=== PATIENT | male | born 1960 | race Caucasian/White ===

== ENCOUNTER 2018-02-25 00:06 | Emergency (ER) | payer OTHER ==
[~2018-02-25] VITALS: Ht 175.3 cm; Wt 92.1 kg
[~2018-02-25 00:06] MED LIST: PERCOCET 5-3251 EACH PO
[2018-02-25] MEDS ORDERED: FLOMAX0.4 MG PO (00:17)
[2018-02-25] MEDS ORDERED: GLUCOPHAGE1000 MG PO (00:17)
[2018-02-25] MEDS ORDERED: AMBIEN 5 MG TABL5 M1 PO (00:18)
[2018-02-25] MEDS ORDERED: IBUPROFEN 800800 MG PO (00:56)
[2018-02-25 01:07] VITALS: BP 132/74
== END 2018-02-25 01:08 | disposition home or self-care (01) ==
LOC: M.ERS 00:06
DX: S61.011A Laceration without foreign body of right thumb without damage to nail, initial encounter (principal); Z88.0 Allergy status to penicillin; W26.9XXA Contact with unspecified sharp object(s), initial encounter; Y93.89 Activity, other specified; Y92.89 Other specified places as the place of occurrence of the external cause; Y99.8 Other external cause status

== ENCOUNTER 2018-11-25 17:34 | Emergency (ER) | payer OTHER ==
[~2018-11-25] VITALS: Ht 175.3 cm; Wt 93.0 kg
[~2018-11-25 17:34] MED LIST changes: +AMBIEN 5 MG TABL5 M1 PO; +FLOMAX0.4 MG PO; +GLUCOPHAGE1000 MG PO; +IBUPROFEN 800800 MG PO
[2018-11-25 18:49] VITALS: BP 111/61
== END 2018-11-25 18:49 | disposition home or self-care (01) ==
LOC: M.ERS 17:34
DX: S61.220A Laceration with foreign body of right index finger without damage to nail, initial encounter (principal); Z88.0 Allergy status to penicillin; Z88.1 Allergy status to other antibiotic agents; W26.8XXA Contact with other sharp object(s), not elsewhere classified, initial encounter; Y92.89 Other specified places as the place of occurrence of the external cause; Y99.0 Civilian activity done for income or pay; Y99.8 Other external cause status

== ENCOUNTER 2019-09-02 17:40 | Inpatient (IN) | payer OTHER, SELFPAY ==
[~2019-09-02] VITALS: Ht 175.3 cm; Wt 54.3 kg
[2019-09-02 17:47] VITALS: BP 140/83
[2019-09-02] MEDS ORDERED: ZPAK PO (17:50)
[2019-09-02] MEDS ORDERED: DORYX MPC120 MG PO (17:51)
[2019-09-02 18:25] LABS: INFLUENZA A ANTIGEN Negative (Negative); INFLUENZA B ANTIGEN Negative (Negative)
[2019-09-02 18:36] LABS: ABSOLUTE LYMPHOCYTES 0.4 thou/uL (0.8-5.3); ABSOLUTE MONOCYTES 0.5 thou/uL (0.0-1.2); ABSOLUTE NEUTROPHILS 3.2 thou/uL (1.6-8.1); BASOPHILS 0.3 %; HEMATOCRIT 41.3 % (42.0-52.0); HEMOGLOBIN 14.3 gm/dL (14.0-18.0); MCH 28.1 pg (26.0-34.0); MCHC 34.6 g/dL (28.0-37.0); MCV 81.2 fL (80.0-100.0); MONOCYTES 11.3 %; MPV 7.9 fl. (7.2-11.1); NUCLEATED RBCS 0 /100WBC; PLATELET COUNT* 143 thou/uL (150-400); POLYS 78.4 %; RBC 5.09 mil/uL (4.50-6.00); RDW-CV 13.6 % (10.5-14.5); WBC 4.1 thou/uL (4.0-11.0)
[2019-09-02 18:48] LABS: APTT 27.8 Seconds (25.0-31.3); CALCIUM 8.5 mg/dL (8.5-10.1); CREATININE 1.1 mg/dL (0.6-1.3); POTASSIUM 4.1 mmol/L (3.5-5.1); PROTIME 10.5 Seconds (9.20-11.50)
[2019-09-02 18:57] LABS: ALBUMIN 3.7 g/dL (3.4-5.0); MAGNESIUM 1.8 mg/dL (1.8-2.4); TOTAL PROTEIN 7.5 g/dL (6.4-8.2)
[2019-09-02 20:00] VITALS: BP 101/61
[2019-09-02 20:40] VITALS: BP 98/69
[2019-09-02] MEDS ORDERED: PROAIR HFA8.5 GM INH (20:54)
[2019-09-02] MEDS ORDERED: SYMBICORT160 MCG/4. INH (20:55)
[2019-09-03] VITALS: BP 100/61
[2019-09-03 04:00] VITALS: BP 103/56
[2019-09-03 07:45] VITALS: BP 119/72
[2019-09-03 12:06] VITALS: BP 109/66
[2019-09-03 16:39] VITALS: BP 118/69
[2019-09-03 20:00] VITALS: BP 108/60
[2019-09-04] VITALS: BP 124/58
[2019-09-04 04:00] VITALS: BP 117/68
[2019-09-04 08:00] VITALS: BP 116/69
[2019-09-04] MEDS ORDERED: FLONASE 0.05%50 MCG NASAL (11:24)
[2019-09-04] MEDS ORDERED: SYMBICORT160 MCG/4. INH (11:24)
[2019-09-04] MEDS ORDERED: ZPAK PO (11:24)
[2019-09-04] MEDS ORDERED: PROAIR HFA8.5 GM INH (12:26)
[2019-09-04] MEDS ORDERED: CLARITIN10 M2 PO (12:26)
[2019-09-04 17:38] VITALS: BP 116/69
[2019-09-04 19:50] VITALS: BP 111/65
[2019-09-04 19:50] LABS: INFLUENZA A ANTIGEN Negative (Negative); INFLUENZA B ANTIGEN Negative (Negative)
[2019-09-05 00:49] VITALS: BP 116/73
[2019-09-05 08:23] VITALS: BP 108/54
--- NOTE | 2019-09-05 08:29 | EKG ---
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
[2019-09-05] MEDS ORDERED: DORYX MPC120 MG PO (14:31)
== END 2019-09-05 16:36 | disposition home or self-care (01) | DRG 202 ==
LOC: M.ERS 17:40 → M.TBA-ER 18:49 → M.2W 18:49
PROVIDERS: Family Medicine; Internal Medicine; ADMIT Family Medicine
DX: J45.901 Unspecified asthma with (acute) exacerbation (principal); J84.9 Interstitial pulmonary disease, unspecified; J96.10 Chronic respiratory failure, unspecified whether with hypoxia or hypercapnia; E11.9 Type 2 diabetes mellitus without complications; G47.00 Insomnia, unspecified; N40.0 Benign prostatic hyperplasia without lower urinary tract symptoms; Z88.1 Allergy status to other antibiotic agents; Z88.0 Allergy status to penicillin; Z88.8 Allergy status to other drugs, medicaments and biological substances; Z57.8 Occupational exposure to other risk factors